=== PATIENT | male | born 1980 | race Caucasian/White ===

== ENCOUNTER 2016-11-26 23:39 | Emergency (ER) | payer MEDICAID ==
[~2016-11-26] VITALS: Ht 182.9 cm; Wt 80.0 kg
[~2016-11-26 23:39] MED LIST: gabapentin
[2016-11-26 23:41] VITALS: BP 120/98
== END 2016-11-27 02:33 | disposition left against medical advice (07) ==
LOC: ED 23:59
DX: Z76.1 Encounter for health supervision and care of foundling (principal); Z53.21 Procedure and treatment not carried out due to patient leaving prior to being seen by health care provider

== ENCOUNTER 2017-02-07 23:04 | Emergency (ER) | payer MEDICAID ==
[~2017-02-07] VITALS: Ht 180.3 cm; Wt 85.0 kg
[2017-02-07] MEDS ORDERED: SODIUM CHLORIDE 0.9% 1,000ML IVBOLUS ONE (23:30)
[2017-02-07 23:38] LABS: BLOOD UREA NITROGEN 9 mg/dL (7-18)
[2017-02-07 23:49] LABS: ASPARTATE AMINO TRANSFERASE 102 U/L (15-37)
[2017-02-07 23:51] LABS: ACETAMINOPHEN < 2 mcg/mL (10-30)
[2017-02-08 04:35] LABS: DAU SCREEN DISCLAIMER
[2017-02-08 04:50] VITALS: BP 154/84
== END 2017-02-08 07:47 | disposition home or self-care (01) ==
LOC: ED 23:59
DX: R45.851 Suicidal ideations (principal); F10.10 Alcohol abuse, uncomplicated; F15.10 Other stimulant abuse, uncomplicated; F20.9 Schizophrenia, unspecified
CPT/HCPCS: 36415; 80053; 80307; 80329; 81003; 84443; 85025; 93005; 96360; 96361; 99285; J7030; G0480

== ENCOUNTER 2020-01-01 16:31 | Emergency (ER) | payer SELFPAY ==
[~2020-01-01] VITALS: Ht 180.3 cm; Wt 82.0 kg
--- NOTE | 2020-01-01 16:56 | NUR ---
PT BIB [facility] FOR C/O EPIGASTRIC PAIN. PT ALSO WITH COUGH X1 WEEK. PT DENIES FEVERS. PT WITH HX ETOH, METH ABUSE. LAST METH USE 2 DAYS AGO, ETOH 1 HOUR AGO. PT DENIES N/V/D. PT DENIES CP, SOB. PT TO CARD MONITOR, BP, CONT PULSE OX
--- NOTE | 2020-01-01 17:27 | NUR ---
PT GIVEN URINAL FOR UA SAMPLE. PT UNABLE TO FOLLOW COMMANDS AT THIS TIME TO INTOXICATION, QUICKLY FALLS BACK TO SLEEP. WILL ATTEMPT AT LATER TIME
[2020-01-01 17:30] LABS: BASOPHILS # (AUTO) 0.01 x10^3/uL (0-0.1); BASOPHILS % (AUTO) 0 % (0-1); EOSINOPHILS # (AUTO) 0.11 x10^3/uL (0-0.4); EOSINOPHILS % (AUTO) 1 % (1-7); LYMPHOCYTES # (AUTO) 0.81 x10^3/uL (1-3.4); LYMPHOCYTES % (AUTO) 9 % (22-44); MD NO; MEAN CORPUSCULAR HEMOGLOBIN 32.8 pg (27.5-34.5); MEAN CORPUSCULAR HGB CONC 33.9 g/dL (33.2-36.2); MEAN CORPUSCULAR VOLUME 96.6 fL (81-97); MEAN PLATELET VOLUME 8.2 fL (7.4-10.4); MONOCYTES # (AUTO) 0.35 x10^3/uL (0.2-0.8); MONOCYTES % (AUTO) 4 % (2-9); NEUTROPHILS # (AUTO) 7.83 x10^3/uL (1.8-6.8); NEUTROPHILS % (AUTO) 86 % (42-75); PLATELET COUNT 232 x10^3/uL (130-400); RED BLOOD COUNT 4.57 x10^6/uL (4.38-5.82)
[2020-01-01 17:42] LABS: ALANINE AMINOTRANSFERASE 136 U/L (12-78); ALBUMIN 3.2 g/dL (3.4-5.0); ANION GAP 9 mmol/L (5-15); CALCIUM 7.6 mg/dL (8.5-10.1); CHLORIDE 109 mmol/L (98-107); CREATININE 0.57 mg/dL (0.7-1.3)
[2020-01-01 17:45] LABS: ALKALINE PHOSPHATASE 62 U/L (45-117); BILIRUBIN,TOTAL 0.6 mg/dL (0.2-1.0); TOTAL PROTEIN 7.2 g/dL (6.4-8.2)
--- NOTE | 2020-01-01 19:00 | NUR ---
RECEIVED REPORT FROM KRISSY CARNEY TO ASSUME CARE OF PT. AT THIS TIME.
--- NOTE | 2020-01-01 19:57 | NUR ---
PT. RESTING ON GURNEY WITH EYES CLOSED. RESPIRATIONS EVEN, NON-LABORED. ALL MONITORS IN PLACE. ALL SAFETY MEASURES OBSERVED. CALLED US IMAGING HAS NOT BEEN COMPLETED YET. TECH STATES IT WILL BE APROXIMATELY 10 MIN BEFORE THEY CAN GET OVER TO COMPLETE IMAGING.
--- NOTE | 2020-01-01 20:25 | NUR ---
US AT BS AT THIS TIME.
--- NOTE | 2020-01-01 20:49 | NUR ---
PT. WALKING AROUND ROOM WITH STEADY GAIT. PT. AT SINK WASHING FACE. UPDATED PAPO LORENZO PT. IS UP FOR RECHECK. PT. TO BE D/C.
[2020-01-01 21:41] VITALS: BP 114/65
== END 2020-01-01 21:44 | disposition home or self-care (01) ==
LOC: ED 16:45
DX: J06.9 Acute upper respiratory infection, unspecified (principal); F10.129 Alcohol abuse with intoxication, unspecified; R74.0 Nonspecific elevation of levels of transaminase and lactic acid dehydrogenase [LDH]; R10.31 Right lower quadrant pain; R10.13 Epigastric pain; R94.31 Abnormal electrocardiogram [ECG] [EKG]; Z92.23 Personal history of estrogen therapy; Y90.0 Blood alcohol level of less than 20 mg/100 ml
CPT/HCPCS: 36415; 74022; 76700; 80053; 83690; 85025; 93005; 99285

== ENCOUNTER 2020-02-05 14:44 | Emergency (ER) | payer SELFPAY ==
[~2020-02-05] VITALS: Ht 175.3 cm; Wt 79.6 kg
--- NOTE | 2020-02-05 15:05 | NUR ---
got back from lunch and patient was recently roomed. patient is rambling, smells of etoh, sunburned and dirty. he states he walked here. he is a poor historian and talks nonstop in a slurred voice. rails up, on monitor, tachy. 95% on room air.
[2020-02-05] MEDS ORDERED: THIAMINE 100MG TABLET ONE (15:28)
[2020-02-05 15:29] LABS: BASOPHILS # (AUTO) 0.06 x10^3/uL (0-0.1); BASOPHILS % (AUTO) 1 % (0-1); EOSINOPHILS # (AUTO) 0.16 x10^3/uL (0-0.4); EOSINOPHILS % (AUTO) 2 % (1-7); LYMPHOCYTES # (AUTO) 3.17 x10^3/uL (1-3.4); LYMPHOCYTES % (AUTO) 42 % (22-44); MD NO; MEAN CORPUSCULAR HEMOGLOBIN 32.9 pg (27.5-34.5); MEAN CORPUSCULAR HGB CONC 33.6 g/dL (33.2-36.2); MEAN CORPUSCULAR VOLUME 97.8 fL (81-97); MEAN PLATELET VOLUME 7.5 fL (7.4-10.4); MONOCYTES # (AUTO) 0.77 x10^3/uL (0.2-0.8); MONOCYTES % (AUTO) 10 % (2-9); NEUTROPHILS # (AUTO) 3.48 x10^3/uL (1.8-6.8); NEUTROPHILS % (AUTO) 46 % (42-75); PLATELET COUNT 345 x10^3/uL (130-400); RED BLOOD COUNT 5.02 x10^6/uL (4.38-5.82); RED CELL DISTRIBUTION WIDTH 13.6 % (9.4-14.8)
[2020-02-05] MEDS ORDERED: LORazepam 2 MG/ML, 1ML ONE (15:29)
[2020-02-05] MEDS ORDERED: SODIUM CHLORIDE 0.9% 1,000ML IVBOLUS ONE (15:30)
[2020-02-05] MEDS ORDERED: LORazepam 2 MG/ML, 1ML IVPush PRN (15:30)
[2020-02-05] MEDS ORDERED: SODIUM CHLORIDE FLUSH 10ML SYR IVF ONE (15:30)
[2020-02-05] MEDS ORDERED: THIAMINE 100MG TABLET PO ONE (15:30)
--- NOTE | 2020-02-05 15:32 | NUR ---
placed on two liters nc. patient falls asleep and oxygen sat drops to 80's. in bed rails up on monitor.
[2020-02-05 15:41] LABS: ALBUMIN 3.8 g/dL (3.4-5.0); ANION GAP 8 mmol/L (5-15); CALCIUM 8.6 mg/dL (8.5-10.1); CHLORIDE 111 mmol/L (98-107); CREATININE 0.75 mg/dL (0.7-1.3)
--- NOTE | 2020-02-05 15:41 | NUR ---
Put pt on 2L O2 on nasal cannula & set urinal at bedside
--- NOTE | 2020-02-05 16:03 | NUR ---
ativan calmed patient and he is sleeping very soundly. awakens to physical touch otherwise asleep. vss
--- NOTE | 2020-02-05 18:02 | NUR ---
patient mostly sleeping but wakes easier. went in room and iv was almost removed, but saved it and retaped it down. patient is sleepy and wakes up sitting up abruptly and sits up and has big dramatic movements, then settles back down to rest.
--- NOTE | 2020-02-05 18:38 | NUR ---
patient resting quietly.
--- NOTE | 2020-02-05 19:06 | NUR ---
bedside report with mamie
--- NOTE | 2020-02-05 19:54 | NUR ---
PT RESTING ON GURNEY, AWAKES TO NAME. PT REQUESTING ORANGE JUICE, JUICE PROVIDED. WILL CONT TO MONITOR.
--- NOTE | 2020-02-05 21:25 | NUR ---
TECH ATTEMPTED TO AMBULATED PT, PT NOT STEADY ON FEET, NOT SAFE FOR DISCHARGE AT THIS TIME.
--- NOTE | 2020-02-05 21:52 | NUR ---
WATER AND CRACKERS PROVIDED REQUESTED
--- NOTE | 2020-02-05 22:51 | NUR ---
PT LAYING ON LEFT SIDE, NO ACUTE DISTRESS NOTED AT THIS TIME. VSS AND WILL CONT TO MONITOR.
[2020-02-05 23:58] VITALS: BP 125/77
--- NOTE | 2020-02-06 00:27 | NUR ---
PT AMBULATING IN HALLWAY WITH STEADY GAIT, PT SAFE FOR DISCHARGE AT THIS TIME. PT PROVIDED WITH RESOURCES FOR ETOH DETOX. PT THREW PAPERS INTO TRASH. RN INFORMED PT THAT [facility] WOULD TAKE HIM FOR DETOX IN THE AM AND TAXI VOUCHER PROVIDED FOR RIDE TO THE CUSTODIAL. PT REFUSED TAXI AND WALKED OUT OF ED.
== END 2020-02-06 00:30 | disposition home or self-care (01) ==
LOC: ED 18:35
DX: F10.129 Alcohol abuse with intoxication, unspecified (principal); F15.10 Other stimulant abuse, uncomplicated; F17.200 Nicotine dependence, unspecified, uncomplicated; R00.0 Tachycardia, unspecified; Y90.0 Blood alcohol level of less than 20 mg/100 ml
CPT/HCPCS: 36415; 80048; 80307; 82040; 85025; 93005; 96374; 99285; J2060; J7030

== ENCOUNTER 2020-03-23 14:53 | Emergency (ER) | payer SELFPAY ==
[~2020-03-23] VITALS: Ht 172.7 cm; Wt 97.1 kg
--- NOTE | 2020-03-23 15:17 | NUR ---
THIS IS A 40 YO M W/ MULTIPLE COMPLAINTS. PT STATES HE "JUST WANTS TO FIX UP MY LIFE". PT REPORTS LAST DRINK WAS 2 MINUTES PRIOR TO ARRIVAL. PT TACYCARDIC, OTHER VS WDL. PT RESTING ON InVisM W/ CALL LIGHT IN REACH, CONNECTED TO MONITORING. DIET TRAY ORDERED.
[2020-03-23] MEDS ORDERED: LORazepam 1MG TABLET ONE (15:26)
[2020-03-23] MEDS ORDERED: LORazepam 1MG TABLET PO ONE (15:30)
--- NOTE | 2020-03-23 15:31 | NUR ---
PT MEDICATED PER EMAR.
--- NOTE | 2020-03-23 15:48 | NUR ---
PT DESAT TO 72% RA WHEN SLEEPING. UPDATED. PT PLACED ON 4L NC FOR SAFETY W/ DESIRED EFFECT.
[2020-03-23] MEDS ORDERED: MAGNESIUM SULFATE 1 GM, THIAMINE 100 MG, FOLIC ACID 1 MG, MVI ADULT 10 ML in SODIUM CHL... IV ONE (16:30)
[2020-03-23] MEDS ORDERED: SODIUM CHLORIDE FLUSH 10ML SYR IVF ONE (16:30)
--- NOTE | 2020-03-23 16:46 | NUR ---
PT MORE DIAPHORETIC AND LETHARGIC. TACHYCARDIC, OTHER VS WDL. PIV STARTED, LABS DRAWN.
--- NOTE | 2020-03-23 16:50 | NUR ---
MED JUAN ANTONIO FROM PHARMACY.
[2020-03-23 16:59] LABS: BASOPHILS # (AUTO) 0.05 x10^3/uL (0-0.1); BASOPHILS % (AUTO) 1 % (0-1); EOSINOPHILS # (AUTO) 0.13 x10^3/uL (0-0.4); EOSINOPHILS % (AUTO) 2 % (1-7); LYMPHOCYTES % (AUTO) 31 % (22-44); MD NO; MEAN CORPUSCULAR HGB CONC 32.9 g/dL (33.2-36.2); MEAN CORPUSCULAR VOLUME 100.4 fL (81-97); MEAN PLATELET VOLUME 7.3 fL (7.4-10.4); MONOCYTES # (AUTO) 0.81 x10^3/uL (0.2-0.8); MONOCYTES % (AUTO) 12 % (2-9); NEUTROPHILS # (AUTO) 3.56 x10^3/uL (1.8-6.8); NEUTROPHILS % (AUTO) 54 % (42-75); PLATELET COUNT 268 x10^3/uL (130-400); RED BLOOD COUNT 4.36 x10^6/uL (4.38-5.82); RED CELL DISTRIBUTION WIDTH 13.5 % (9.4-14.8)
[2020-03-23 17:06] LABS: ALBUMIN 3.4 g/dL (3.4-5.0); ANION GAP 9 mmol/L (5-15); CALCIUM 8.4 mg/dL (8.5-10.1); CHLORIDE 109 mmol/L (98-107)
[2020-03-23 17:09] LABS: ALANINE AMINOTRANSFERASE 144 U/L (12-78); ALKALINE PHOSPHATASE 82 U/L (45-117); BILIRUBIN,TOTAL 0.3 mg/dL (0.2-1.0); CREATININE 0.67 mg/dL (0.7-1.3); TOTAL PROTEIN 7.6 g/dL (6.4-8.2)
[2020-03-23] MEDS ORDERED: POTASSIUM CHLORIDE 40 MEQ in SODIUM CHLORIDE 0.9% 500 ML IV ONE (17:30)
--- NOTE | 2020-03-23 17:39 | NUR ---
MED JUAN ANTONIO FROM PHARMACY.
--- NOTE | 2020-03-23 17:39 | NUR ---
CRITICAL MIMI 0.410, REPORTED TO .
--- NOTE | 2020-03-23 17:57 | NUR ---
suicide Safety Meal tray provided to patient.
--- NOTE | 2020-03-23 18:44 | NUR ---
PT SLEEPING ON GURNEY, CONNECTED TO ALL MONITORING, VSS, DOLORESN.
--- NOTE | 2020-03-23 19:01 | NUR ---
REPORT GIVEN TO CATRACHITA REY. PT SLEEPING ON [facility], [facility]. IVF INFUSING APPROPRIATELY.
--- NOTE | 2020-03-23 19:03 | NUR ---
REPORT RECEIVED FROM KRISSY WRIGHT. ASSUMED CARE OF PT. PT SLEEPING ON GURNEY, NO DISTRESS NOTED. RESPIRATIONS EVEN AND UNLABORED. ALL VITALS STABLE. IV MEDS INFUSING WITHOUT DIFFICULTY. FOOD AT BEDSIDE FOR WHEN PT WAKES UP. WILL CONTINUE TO MONITOR.
--- NOTE | 2020-03-23 19:53 | NUR ---
PT CONTINUES TO SLEEP. VITALS REMAIN STABLE. RESPIRATIONS EVEN AND UNLABORED, WILL CONTINUE TO MONITOR.
--- NOTE | 2020-03-23 21:28 | NUR ---
PT INTERMITTENTLY SLEEPING, AROUSES TO VERBAL STIMULI HOWEVER IS NOT FULL COHERENT. ALL VITALS REMAIN STABLE. AWAITING MEDS TO INFUSE AND PT TO BE SOBER ENOUGH FOR SAFE DISCHARGE. WILL CONTINUE TO MONITOR.
--- NOTE | 2020-03-23 22:08 | NUR ---
PT AWAKE, EATING A SANDWICH, PROVIDED WITH ORANGE JUICE. ALL VITALS STABLE. PT ALERT AND ORIENTED AND ANSWERING QUESTIONS APPROPRIATELY. WILL RE EVALUATE PT SHORTLY.
--- NOTE | 2020-03-23 23:37 | NUR ---
PT ALERT AND ORIENTED, AMBULATORY WITH STEADY GAIT. ALL VITALS STABLE. PT PROVIDED WITH DISCHARGE PAPERWORK, OFFERED SOCKS BUT REFUSED, PT DOES HAVE SANDALS. WATER PROVIDED. CAB VOUCHER ALSO PROVIDED.
[2020-03-23 23:39] VITALS: BP 116/67
== END 2020-03-23 23:42 | disposition home or self-care (01) ==
LOC: ED 16:00
DX: F10.220 Alcohol dependence with intoxication, uncomplicated (principal); Y90.9 Presence of alcohol in blood, level not specified
CPT/HCPCS: 36415; 80053; 80307; 83735; 85025; 96365; 96367; 99285; J3411; J3475; J3480; J7030; J7040

== ENCOUNTER 2020-03-26 00:42 | Emergency (ER) | payer SELFPAY ==
[~2020-03-26] VITALS: Ht 180.3 cm; Wt 86.5 kg
[2020-03-26] MEDS ORDERED: LORazepam 1MG TABLET PO ONE (01:30)
[2020-03-26] MEDS ORDERED: LORazepam 1MG TABLET ONE (01:40)
[2020-03-26 01:47] VITALS: BP 136/71
== END 2020-03-26 01:49 | disposition home or self-care (01) ==
LOC: ED 01:15
DX: F41.1 Generalized anxiety disorder (principal); F15.122 Other stimulant abuse with intoxication with perceptual disturbance; R00.0 Tachycardia, unspecified
CPT/HCPCS: 93005; 99283

== ENCOUNTER 2020-04-24 20:41 | Emergency (ER) | payer MEDICAID ==
[~2020-04-24] VITALS: Ht 175.3 cm; Wt 97.0 kg
[2020-04-24 20:42] VITALS: BP 122/79
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
== END 2020-04-24 21:21 | disposition left against medical advice (07) ==
LOC: ED 21:00
DX: R41.82 Altered mental status, unspecified (principal); I95.9 Hypotension, unspecified; Z72.9 Problem related to lifestyle, unspecified
CPT/HCPCS: 99283

== ENCOUNTER 2020-05-05 05:45 | Emergency (ER) | payer MEDICAID ==
[~2020-05-05] VITALS: Ht 177.8 cm; Wt 80.0 kg
[2020-05-05 05:57] VITALS: BP 127/71
--- NOTE | 2020-05-05 07:21 | NUR ---
PT GIVEN DISCHARGE PAPERS AND AMBULATED TO BATHROOM THEN DISCHARGE WINDOW STEADY GAIT
== END 2020-05-05 07:24 | disposition home or self-care (01) ==
LOC: ED 06:33
DX: K40.91 Unilateral inguinal hernia, without obstruction or gangrene, recurrent (principal); F15.10 Other stimulant abuse, uncomplicated
CPT/HCPCS: 99283

== ENCOUNTER 2020-05-15 18:06 | Emergency (ER) | payer MEDICAID ==
[~2020-05-15] VITALS: Ht 180.3 cm; Wt 90.0 kg
--- NOTE | 2020-05-15 18:27 | NUR ---
PT PLACED ON BP CUFF, PULSE OX. CALL LIGHT WITHIN REACH.
--- NOTE | 2020-05-15 20:19 | NUR ---
PT SLEEPING, NAD. VSS. CALL LIGHT WITHIN REACH.
--- NOTE | 2020-05-15 21:12 | NUR ---
REPORT TO PATRICIA REY.
--- NOTE | 2020-05-15 21:18 | NUR ---
Report received from KRISSY Klein Pt sleeping on [employer]. VSS.
[2020-05-15 21:25] LABS: BASOPHILS # (AUTO) 0.06 x10^3/uL (0-0.1); BASOPHILS % (AUTO) 1 % (0-1); EOSINOPHILS # (AUTO) 0.12 x10^3/uL (0-0.4); EOSINOPHILS % (AUTO) 2 % (1-7); LYMPHOCYTES # (AUTO) 1.92 x10^3/uL (1-3.4); LYMPHOCYTES % (AUTO) 28 % (22-44); MD NO; MEAN CORPUSCULAR HEMOGLOBIN 33.1 pg (27.5-34.5); MEAN CORPUSCULAR HGB CONC 33.5 g/dL (33.2-36.2); MEAN CORPUSCULAR VOLUME 98.8 fL (81-97); MEAN PLATELET VOLUME 8.3 fL (7.4-10.4); MONOCYTES # (AUTO) 0.69 x10^3/uL (0.2-0.8); MONOCYTES % (AUTO) 10 % (2-9); NEUTROPHILS # (AUTO) 4.01 x10^3/uL (1.8-6.8); NEUTROPHILS % (AUTO) 59 % (42-75); PLATELET COUNT 220 x10^3/uL (130-400); RED BLOOD COUNT 4.41 x10^6/uL (4.38-5.82); RED CELL DISTRIBUTION WIDTH 13.2 % (9.4-14.8)
[2020-05-15 21:37] LABS: ALANINE AMINOTRANSFERASE 88 U/L (12-78); ALBUMIN 3.2 g/dL (3.4-5.0); ANION GAP 9 mmol/L (5-15); CHLORIDE 106 mmol/L (98-107)
[2020-05-15 21:40] LABS: ALKALINE PHOSPHATASE 91 U/L (45-117); BILIRUBIN,TOTAL 0.4 mg/dL (0.2-1.0); CREATININE 0.58 mg/dL (0.7-1.3); TOTAL PROTEIN 8.2 g/dL (6.4-8.2)
--- NOTE | 2020-05-15 22:32 | NUR ---
Pt sleeping on gurney. Pt seen repositioning self. VSS.
[2020-05-15 22:33] VITALS: BP 118/77
[2020-05-16] MEDS ORDERED: POTASSIUM CHLORIDE 10% 40 MEQ/30 ML UDC PO ONE (00:30)
--- NOTE | 2020-05-16 00:58 | NUR ---
VSS. Pt off oxygen. Pt sitting up on gurney.
--- NOTE | 2020-05-16 01:08 | NUR ---
Pt given apple juice. Pt sitting up. Pt remains on pulse ox/HR monitor. Pt aware of plan to ambulate again.
--- NOTE | 2020-05-16 01:29 | NUR ---
Pt tolerated 2 apple juices and PO potassium replacement.
--- NOTE | 2020-05-16 01:49 | NUR ---
Pt ambulatory in room. Pt continues to tolerate PO fluids. Pt talking to nurse and says he won't quit drinking because it "gives him withdrawals". updated and okay with d/c.
== END 2020-05-16 02:10 | disposition home or self-care (01) ==
LOC: ED 21:05
DX: K40.91 Unilateral inguinal hernia, without obstruction or gangrene, recurrent (principal); E87.6 Hypokalemia; R10.2 Pelvic and perineal pain; F10.20 Alcohol dependence, uncomplicated; F15.20 Other stimulant dependence, uncomplicated; F17.210 Nicotine dependence, cigarettes, uncomplicated; Z72.9 Problem related to lifestyle, unspecified; Y90.0 Blood alcohol level of less than 20 mg/100 ml
CPT/HCPCS: 36415; 80053; 80307; 83690; 85025; 99285; 99406

== ENCOUNTER 2020-05-17 15:47 | Emergency (ER) | payer MEDICAID ==
[~2020-05-17] VITALS: Ht 180.3 cm; Wt 90.9 kg
[2020-05-17] MEDS ORDERED: SODIUM CHLORIDE 0.9% 1,000ML IVBOLUS ONE (16:30)
[2020-05-17] MEDS ORDERED: SODIUM CHLORIDE FLUSH 10ML SYR IVF ONE (16:30)
[2020-05-17] MEDS ORDERED: ONDANSETRON ODT 4 MG PO ONE (16:30)
[2020-05-17] MEDS ORDERED: FAMOTIDINE 20 MG/2 ML IVPush ONE (16:30)
[2020-05-17] MEDS ORDERED: MAALOX/HYOSCYAMINE/LIDOCAINE 45 ML BTL PO ONE (16:30)
[2020-05-17] MEDS ORDERED: FAMOTIDINE 20 MG/2 ML ONE (16:41)
[2020-05-17] MEDS ORDERED: ONDANSETRON ODT 4 MG ONE (16:41)
[2020-05-17] MEDS ORDERED: MAALOX/HYOSCYAMINE/LIDOCAINE 45 ML BTL ONE (16:41)
[2020-05-17 16:52] LABS: BASOPHILS # (AUTO) 0.04 x10^3/uL (0-0.1); BASOPHILS % (AUTO) 1 % (0-1); EOSINOPHILS # (AUTO) 0.12 x10^3/uL (0-0.4); EOSINOPHILS % (AUTO) 2 % (1-7); LYMPHOCYTES # (AUTO) 2.29 x10^3/uL (1-3.4); LYMPHOCYTES % (AUTO) 33 % (22-44); MD NO; MEAN CORPUSCULAR HEMOGLOBIN 33.2 pg (27.5-34.5); MEAN CORPUSCULAR HGB CONC 33.6 g/dL (33.2-36.2); MEAN CORPUSCULAR VOLUME 98.8 fL (81-97); MEAN PLATELET VOLUME 7.7 fL (7.4-10.4); MONOCYTES # (AUTO) 0.61 x10^3/uL (0.2-0.8); MONOCYTES % (AUTO) 9 % (2-9); NEUTROPHILS # (AUTO) 3.79 x10^3/uL (1.8-6.8); NEUTROPHILS % (AUTO) 55 % (42-75); PLATELET COUNT 272 x10^3/uL (130-400); RED BLOOD COUNT 4.42 x10^6/uL (4.38-5.82); RED CELL DISTRIBUTION WIDTH 12.6 % (9.4-14.8)
[2020-05-17 16:57] VITALS: BP 116/71
[2020-05-17 17:00] LABS: ALANINE AMINOTRANSFERASE 79 U/L (12-78); ALBUMIN 3.2 g/dL (3.4-5.0); ANION GAP 7 mmol/L (5-15); CALCIUM 8.1 mg/dL (8.5-10.1); CHLORIDE 108 mmol/L (98-107); CREATININE 0.57 mg/dL (0.7-1.3)
[2020-05-17 17:05] LABS: ALKALINE PHOSPHATASE 97 U/L (45-117); BILIRUBIN,TOTAL 0.4 mg/dL (0.2-1.0); TOTAL PROTEIN 8.2 g/dL (6.4-8.2); TROPONIN I < 0.015 ng/mL (0.000-0.045)
--- NOTE | 2020-05-17 18:50 | NUR ---
BEDSIDE REPORT FROM EZE REY, PT CARE TO BE TRANSFERRED AT THIS TIME. PT NAD, RESTING ON GURNEY, APPEARS COMFORTBALE, GIVEN MEAL TRAY AND WARM BLANKETS FOR COMFORT. WCHETCOR. MTF.
--- NOTE | 2020-05-17 19:42 | NUR ---
Patient given discharge instructions and they have confirmed that they understand the instructions. Patient ambulatory with steady gait. NAD, DENIES ADDITIONAL NEEDS OR QUESTIONS AT THIS TIME. SKIN P/W/D, VSS. NO BELONGINGS LEFT IN ROOM ON DC.
== END 2020-05-17 19:43 | disposition home or self-care (01) ==
LOC: ED 16:22
DX: R07.89 Other chest pain (principal); F10.220 Alcohol dependence with intoxication, uncomplicated; F17.210 Nicotine dependence, cigarettes, uncomplicated; R56.9 Unspecified convulsions; Y90.0 Blood alcohol level of less than 20 mg/100 ml
CPT/HCPCS: 36415; 70450; 71045; 80053; 80307; 84484; 85025; 93005; 96374; 99285; 99406; J3490; J7030; Q0162

== ENCOUNTER 2020-05-21 20:04 | Emergency (ER) | payer MEDICAID ==
[~2020-05-21] VITALS: Ht 175.3 cm; Wt 82.0 kg
--- NOTE | 2020-05-21 20:21 | NUR ---
Arrives via [facility]. Intoxicated, but alert, answering questions appropriately. States R groin pain worsening x "a couple weeks." Pt states he believes it is a hernia. R groin tender to palpation. Pt also states RLQ tenderness/pain. Denies N/V/D. Denies fever/chills. Denies chest pain/SOB. Pt admits to being daily drinker of "as much as I can get" with hx of withdrawal seizures.
[2020-05-21 21:07] VITALS: BP 129/78
== END 2020-05-21 21:10 | disposition home or self-care (01) ==
LOC: ED 20:30
DX: K40.91 Unilateral inguinal hernia, without obstruction or gangrene, recurrent (principal)
CPT/HCPCS: 99283

== ENCOUNTER 2020-06-19 01:07 | Emergency (ER) | payer MEDICAID ==
[~2020-06-19] VITALS: Ht 180.3 cm; Wt 85.0 kg
[2020-06-19 01:09] VITALS: BP 126/77
--- NOTE | 2020-06-19 03:03 | NUR ---
SLEEPING, RR EQUAL AND UNLABORED, BED LOW, CALL VINCENT IN REACH. WILL CONTINUE TO MONITOR. MTF.
== END 2020-06-19 04:10 | disposition home or self-care (01) ==
LOC: ED 03:30
DX: F10.220 Alcohol dependence with intoxication, uncomplicated (principal); R05 Cough; R06.02 Shortness of breath; Y90.9 Presence of alcohol in blood, level not specified
CPT/HCPCS: 71045; 99283

== ENCOUNTER 2020-06-22 06:21 | Emergency (ER) | payer MEDICAID ==
[~2020-06-22] VITALS: Ht 180.3 cm; Wt 84.0 kg
[2020-06-22 06:24] VITALS: BP 119/95
--- NOTE | 2020-06-22 06:29 | NUR ---
triage note: EKG done in triage
--- NOTE | 2020-06-22 06:51 | NUR ---
Pt currently in xray
[2020-06-22 07:44] LABS: BASOPHILS % (AUTO) 1 % (0-1); EOSINOPHILS % (AUTO) 1 % (1-7); LYMPHOCYTES % (AUTO) 35 % (22-44); MEAN CORPUSCULAR HEMOGLOBIN 33.3 pg (27.5-34.5); MEAN CORPUSCULAR HGB CONC 33.8 g/dL (33.2-36.2); MEAN PLATELET VOLUME 8.5 fL (7.4-10.4); MONOCYTES % (AUTO) 8 % (2-9); NEUTROPHILS % (AUTO) 55 % (42-75); PLATELET COUNT 187 x10^3/uL (130-400); RED BLOOD COUNT 4.41 x10^6/uL (4.38-5.82); RED CELL DISTRIBUTION WIDTH 13.4 % (9.4-14.8)
[2020-06-22 07:47] LABS: ALANINE AMINOTRANSFERASE 117 U/L (12-78); ALBUMIN 3.4 g/dL (3.4-5.0); ANION GAP 8 mmol/L (5-15); CALCIUM 8.3 mg/dL (8.5-10.1); CHLORIDE 105 mmol/L (98-107)
--- NOTE | 2020-06-22 07:50 | NUR ---
Pt ambulatory to main nurse's station with steady gait, reports he does not want to stay and be seen any longer. Pt appears agitated, shouting "I'm getting the fuck outta here." to his friend who is accompanying pt. Pt's friend states "He wants to leave, I can't convince him to stay, I'm sorry." Pt A&O x4, fully dressed. Pt refuses to sign AMA paper. Pt walked out of unit accompanied by his friend. made aware.
[2020-06-22 07:51] LABS: MD NO
[2020-06-22 07:52] LABS: ALKALINE PHOSPHATASE 83 U/L (45-117); BILIRUBIN,TOTAL 0.4 mg/dL (0.2-1.0); TROPONIN I < 0.015 ng/mL (0.000-0.045)
== END 2020-06-22 07:54 | disposition left against medical advice (07) ==
LOC: ED 07:30
DX: R10.84 Generalized abdominal pain (principal); R06.00 Dyspnea, unspecified; R00.0 Tachycardia, unspecified; F17.200 Nicotine dependence, unspecified, uncomplicated
CPT/HCPCS: 36415; 74022; 80053; 80307; 83690; 84484; 85025; 93005; 99285

== ENCOUNTER 2020-07-09 02:08 | Emergency (ER) | payer MEDICAID ==
[~2020-07-09] VITALS: Ht 180.3 cm; Wt 89.2 kg
--- NOTE | 2020-07-09 02:27 | NUR ---
FIRST CONTACT WITH PT, PT FOUND WALKING DOWN HALLWAY. REDIRECTED TO ROOM, PULSE OX 99%RA.
[2020-07-09] MEDS ORDERED: SODIUM CHLORIDE FLUSH 10ML SYR IVF ONE ×2 (02:30→03:00)
--- NOTE | 2020-07-09 02:53 | NUR ---
PT WITH RED, GLASSY EYES, SLURRED SPEACH, FALLS ASLEEP THEN WAKES UP SHOUTING OF RLQ PAIN HX HERNIA. IV STARTED, BLOODS DRAWN AND SENT. ON SEAM PRESS OPERATOR, S TACH NO ECTOPY NO ST ELEVATION. PCXR DONE. IVF INFUSING PER ORDER. CALL VINCENT IN REACH, BED LOW. WILL CONTINUE TO MONITOR.
--- NOTE | 2020-07-09 02:59 | NUR ---
PT WITH PERIODS OF APNEA, O2 SAT 80%RA, VERBAL/PAINFUL STIMULI PT WAKES UP, AIRWAY OPEN, O2 PLACED. SATS BACK UP 98%.
[2020-07-09] MEDS ORDERED: SODIUM CHLORIDE 0.9% 1,000ML IVBOLUS ONE (03:00)
[2020-07-09 03:06] LABS: ALANINE AMINOTRANSFERASE 170 U/L (12-78); ALBUMIN 3.2 g/dL (3.4-5.0); ANION GAP 5 mmol/L (5-15); CALCIUM 8.4 mg/dL (8.5-10.1); CHLORIDE 110 mmol/L (98-107); CREATININE 0.69 mg/dL (0.7-1.3)
[2020-07-09 03:08] LABS: ALKALINE PHOSPHATASE 94 U/L (45-117); BILIRUBIN,TOTAL 0.4 mg/dL (0.2-1.0); TOTAL PROTEIN 7.7 g/dL (6.4-8.2)
[2020-07-09 03:11] LABS: BASOPHILS % (AUTO) 2 % (0-1); EOSINOPHILS % (AUTO) 1 % (1-7); LYMPHOCYTES % (AUTO) 26 % (22-44); MEAN CORPUSCULAR HEMOGLOBIN 33.1 pg (27.5-34.5); MEAN CORPUSCULAR HGB CONC 33.3 g/dL (33.2-36.2); MEAN PLATELET VOLUME 8.5 fL (7.4-10.4); MONOCYTES % (AUTO) 15 % (2-9); NEUTROPHILS % (AUTO) 57 % (42-75); PLATELET COUNT 369 x10^3/uL (130-400); RED BLOOD COUNT 4.19 x10^6/uL (4.38-5.82); RED CELL DISTRIBUTION WIDTH 12.5 % (9.4-14.8)
[2020-07-09 03:57] LABS: MD SCAN
[2020-07-09] MEDS ORDERED: OMNIPAQUE 350 MG/ML, 100ML BOTTLE ONE (03:58)
--- NOTE | 2020-07-09 04:06 | NUR ---
BACK FROM CT, PT ONLY WAKES UP WITH LOUD VERBAL/PAINFUL STIMULI. IVF INFUSED. ON MONITOR. VSS. WILL CONTINUE TO MONITOR.
--- NOTE | 2020-07-09 04:46 | NUR ---
SLEEPING, WAKES UP WITH LOUD VERBAL, PAINFUL STIMULI. VSS. WILL CONTINUE TO MONITOR.
--- NOTE | 2020-07-09 05:03 | NUR ---
PT REMAINS DIFFICULT TO WAKE UP, WHEN DOES WAKE UP IS SLURRY SPEACH. ERP INFORMED. WILL NEED TO MTF PRIOR TO DC, UNABLE TO SAFELY DISPO AT THIS TIME.
[2020-07-09 05:08] LABS: MICROSCOPIC NOT IND
--- NOTE | 2020-07-09 05:55 | NUR ---
PT INADVERTENTLY PULLED HIS OWN IV OUT, CATH INTACT. BLEEDING CONTROLLED. PT STILL WITH DIFFICULTY WAKING UP WITHOUT PAINFUL STIMULI. SIDE RAILS UP, RR EQUAL AND UNLABORED.
--- NOTE | 2020-07-09 06:47 | NUR ---
REPORT TO KRISSY WRIGHT
[2020-07-09 07:20] VITALS: BP 120/90
--- NOTE | 2020-07-09 07:27 | NUR ---
PT VERBALIZED UNDERSTANDING OF DC INSTRUCTIONS. AMBULATORY W/ A STEADY GAIT. RESP EVEN AND UNLABORED, NADN.
== END 2020-07-09 07:29 | disposition home or self-care (01) ==
LOC: ED 04:22
DX: K44.9 Diaphragmatic hernia without obstruction or gangrene (principal); K21.9 Gastro-esophageal reflux disease without esophagitis; R94.5 Abnormal results of liver function studies; R10.13 Epigastric pain; R05 Cough; R10.9 Unspecified abdominal pain; F10.10 Alcohol abuse, uncomplicated; F15.10 Other stimulant abuse, uncomplicated; Y90.9 Presence of alcohol in blood, level not specified; Z72.9 Problem related to lifestyle, unspecified
CPT/HCPCS: 36415; 71045; 74177; 80053; 81003; 83690; 85025; 93005; 96360; 96361; 99285; J7030; Q9967

== ENCOUNTER 2020-07-21 22:15 | Emergency (ER) | payer MEDICAID ==
[~2020-07-21] VITALS: Ht 182.9 cm; Wt 89.3 kg
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
--- NOTE | 2020-07-21 22:24 | NUR ---
PT STATES HE DRINKS "ALL DAY EVERY DAY". SEIZURE PRECAUTIONS IN PLACE.
--- NOTE | 2020-07-21 22:25 | NUR ---
BYSTANDER AT SCENE LEFT DAUGHTERS PHONE NUMBERS WITH EMS. JOSHUA - [phone] AND KOTA [phone]
[2020-07-21] MEDS ORDERED: ONDANSETRON ODT 4 MG PO ONE (22:30)
[2020-07-21] MEDS ORDERED: THIAMINE 100MG TABLET PO ONE (22:30)
[2020-07-21 22:45] LABS: BASOPHILS % (AUTO) 1 % (0-1); EOSINOPHILS % (AUTO) 2 % (1-7); LYMPHOCYTES % (AUTO) 28 % (22-44); MEAN CORPUSCULAR HEMOGLOBIN 33.2 pg (27.5-34.5); MEAN CORPUSCULAR HGB CONC 33.5 g/dL (33.2-36.2); MEAN PLATELET VOLUME 7.8 fL (7.4-10.4); MONOCYTES % (AUTO) 8 % (2-9); NEUTROPHILS % (AUTO) 60 % (42-75); PLATELET COUNT 256 x10^3/uL (130-400); RED BLOOD COUNT 4.59 x10^6/uL (4.38-5.82); RED CELL DISTRIBUTION WIDTH 12.8 % (9.4-14.8)
[2020-07-21 22:46] LABS: MD NO
[2020-07-21 22:57] LABS: ALBUMIN 3.2 g/dL (3.4-5.0); ANION GAP 5 mmol/L (5-15); CALCIUM 8.1 mg/dL (8.5-10.1); CHLORIDE 109 mmol/L (98-107); CREATININE 0.56 mg/dL (0.7-1.3)
[2020-07-21 22:58] LABS: SALICYLATE LEVEL < 1.7 mg/dL (2.8-20.0)
[2020-07-21] MEDS ORDERED: THIAMINE 100MG TABLET ONE (23:12)
--- NOTE | 2020-07-21 23:30 | NUR ---
PT INDIVIDUALIZED EDUCATION PLAN AIDE LIGHT CONSTATNTLY AND YELLING FROM ROOM FOR "WARM FOOD". PT STATES HE HASNT EATEN IN THREE DAYS. EDUCATED ON THAT COFFEE CART IS CLOSED AT THIS TIME. WILL DO NURSE DYSPHAGIA AND SEE ABOUT CRACKERS IN MEANTIME
--- NOTE | 2020-07-22 00:30 | NUR ---
PT SLEEPING, VSS. NO NEEDS AT THIS TIME
--- NOTE | 2020-07-22 01:30 | NUR ---
PT SLEEPING, VSS, NO NEEDS AT THIS TIME
--- NOTE | 2020-07-22 02:30 | NUR ---
PT SLEEPING, VSS, NO NEEDS
--- NOTE | 2020-07-22 03:26 | NUR ---
PT AWAKENS EASILY, NO SEIZURE ACTIVITY NOTED.
[2020-07-22 03:36] VITALS: BP 118/75
== END 2020-07-22 03:40 | disposition home or self-care (01) ==
LOC: ED 22:37
DX: S06.0X0A Concussion without loss of consciousness, initial encounter (principal); S00.83XA Contusion of other part of head, initial encounter; G31.2 Degeneration of nervous system due to alcohol; F17.210 Nicotine dependence, cigarettes, uncomplicated; F10.220 Alcohol dependence with intoxication, uncomplicated; Y90.0 Blood alcohol level of less than 20 mg/100 ml; R00.0 Tachycardia, unspecified; W22.8XXA Striking against or struck by other objects, initial encounter; Y93.89 Activity, other specified; Y92.89 Other specified places as the place of occurrence of the external cause; Y99.8 Other external cause status
CPT/HCPCS: 36415; 70450; 71045; 80048; 80307; 82040; 85025; 93005; 99285; 99406

== ENCOUNTER 2020-07-22 15:36 | Emergency (ER) | payer MEDICAID ==
[~2020-07-22] VITALS: Ht 175.3 cm; Wt 75.0 kg
[2020-07-22 16:37] VITALS: BP 119/84
== END 2020-07-22 19:26 | disposition home or self-care (01) ==
LOC: ED 18:58
DX: S00.03XA Contusion of scalp, initial encounter (principal); F10.20 Alcohol dependence, uncomplicated; G92 Toxic encephalopathy; G40.909 Epilepsy, unspecified, not intractable, without status epilepticus; Z72.9 Problem related to lifestyle, unspecified; X58.XXXA Exposure to other specified factors, initial encounter; Y93.89 Activity, other specified; Y92.89 Other specified places as the place of occurrence of the external cause; Y99.8 Other external cause status; Y90.0 Blood alcohol level of less than 20 mg/100 ml
CPT/HCPCS: 36415; 70450; 80307; 82962; 93005; 99285

== ENCOUNTER 2020-08-16 01:25 | Emergency (ER) | payer MEDICAID ==
[~2020-08-16] VITALS: Ht 180.3 cm; Wt 83.3 kg
[2020-08-16 01:33] VITALS: BP 121/74
[2020-08-16] MEDS ORDERED: CLINDAMYCIN 300 MG CAPSULE PO ONE (02:00)
[2020-08-16] MEDS ORDERED: CLINDAMYCIN 300 MG CAPSULE ONE (02:32)
--- NOTE | 2020-08-16 02:35 | NUR ---
PT MEDICATED WITH ABX. PT GIVEN URINAL. PT TO BE DC'D
--- NOTE | 2020-08-16 03:23 | NUR ---
Covering KRISSY Pichardo for break. Pt sleeping, waiting for dispo/re-eval by ERP.
--- NOTE | 2020-08-16 03:54 | NUR ---
First contact with patient, dc with rx and instruct. Pt refusing to go told me to "fuck off im sleeping" security called to escort out. VSS. able to safely navigate community and resources.
--- NOTE | 2020-08-16 03:57 | NUR ---
Upon leaving pt told me to "fuck off I don't want that" re: his dc papers
== END 2020-08-16 04:00 | disposition home or self-care (01) ==
LOC: ED 03:52
DX: L03.114 Cellulitis of left upper limb (principal); F17.200 Nicotine dependence, unspecified, uncomplicated; Z72.9 Problem related to lifestyle, unspecified
CPT/HCPCS: 99283

== ENCOUNTER 2020-08-28 11:55 | Emergency (ER) | payer SELFPAY ==
[~2020-08-28] VITALS: Ht 180.3 cm; Wt 78.3 kg
--- NOTE | 2020-08-28 12:04 | NUR ---
PATIENT BIB [facility] WITH CHIEF C/O ETOH. PER EMS PATIENT WAS FOUND FACE DOWN. PER EMS PATIENT WAS ONLY RESONSIVE TO PAINFUL STIMULI AT FIRST, BUT BECAME MORE AROUSABLE. NO INTERVENTIONS EN ROUTE. PATIENT RESTLESS IN GURNEY, KEEPS SAYING "MOTHER FUCKERS KNOCK ME DOWN." AND "I'M HUNGRY A MOTHER FUCKER." PATIENT REPORTS DRINKING TWO FIFTHS OF VODKA PER DAY ALONG WITH 4 LOCOS, PATIENT ENDORSES METH USE. NADN, CONNECTED TO FAMILY EDUCATOR, HR 103, OTHER VSS, SIDE RAILS UP X2, CALL LIGHT WITHIN REACH.
--- NOTE | 2020-08-28 13:30 | NUR ---
PATIENT RESTING IN GURNEY WITH EYES CLOSED, RESP EVEN AND UNLABORED, NADN, VSS, SIDE RAILS UP X2, CALL LIGHT WITHIN REACH, WILL CONTINUE TO MONITOR.
[2020-08-28 14:28] VITALS: BP 124/88
--- NOTE | 2020-08-28 14:29 | NUR ---
PATIENT RESTING IN GURNEY WITH EYES CLOSED, RESP EVEN AND UNLABORED, NADN, VSS, SIDE RAILS UP X2, CALL LIGHT WITHIN REACH, WILL CONTINUE TO MONITOR.
--- NOTE | 2020-08-28 14:43 | NUR ---
Patient sitting in [facility] stating "get me the fuck out of here, I'll sign what I need to sign." Patient stood up from [facility] and ripped off blood pressure cuff, O2 sensor, and phototypesetting equipment monitor leads. Spoke with [employer], discharge paperwork up. Gave discharge paperwork to patient, walked patient from ED, patient ambulatory with steady gait. Patient stating on the way out, "This place should be called [facility], nobody gives a shit."
== END 2020-08-28 14:44 | disposition home or self-care (01) ==
LOC: ED 14:38
DX: F10.120 Alcohol abuse with intoxication, uncomplicated (principal); Y90.0 Blood alcohol level of less than 20 mg/100 ml
CPT/HCPCS: 99283

== ENCOUNTER 2020-10-27 02:30 | Emergency (ER) | payer MEDICAID ==
[~2020-10-27] VITALS: Ht 172.7 cm; Wt 78.0 kg
--- NOTE | 2020-10-27 03:40 | NUR ---
PT RESTING ON YAKELIN REEVES
[2020-10-27 03:54] VITALS: BP 126/75
--- NOTE | 2020-10-27 04:55 | NUR ---
PT CONTINUES TO REST ON YAKELIN REEVES
--- NOTE | 2020-10-27 06:09 | NUR ---
PT NOW AWAKE REQ WATER AND URINAL, WILL BE DC SOON
--- NOTE | 2020-10-27 07:00 | NUR ---
Report received and care assumed. Pt sleeping on bed, already given d/c instructions and asked to get shoes on for leaving prior to assumption of care per RN report. Pt without shoes on, urine in urinal and on floor, and pt curled up on L lateral on gurney. Security to be called to mobilize if pt refuses to go at this point.
--- NOTE | 2020-10-27 07:20 | NUR ---
Pt assisted with putting on his shoes and shirts, escorted by RN to discharge desk where he refused to stay for assessment and walked out of dept. Pt refused reassessment of VS as well prior to leaving ED room 17.
== END 2020-10-27 08:00 | disposition home or self-care (01) ==
LOC: ED 04:19
DX: F10.120 Alcohol abuse with intoxication, uncomplicated (principal); G31.2 Degeneration of nervous system due to alcohol; F17.200 Nicotine dependence, unspecified, uncomplicated; Z72.9 Problem related to lifestyle, unspecified; Y90.9 Presence of alcohol in blood, level not specified
CPT/HCPCS: 99283

== ENCOUNTER 2020-12-07 22:01 | Emergency (ER) | payer MEDICAID ==
[~2020-12-07] VITALS: Ht 180.3 cm; Wt 74.7 kg
[2020-12-07 22:07] VITALS: BP 133/94
--- NOTE | 2020-12-07 22:25 | NUR ---
BIB [facility]. PT C/O BILAT FLANK PAIN AND RIGHT INGUINAL HERNIA. +ETOH AND METH TODAY. PT REFUSED INTERVENTIONS BY [facility]. PT CONNECTED TO MONITORING. CALL LIGTH IN REACH. PT IS RESTLESS ON GURNEY AND NONSTOP TALKING. PT C/O PAIN TO RIGHT INGUINAL HERNIA. PT COMPLIANT WITH CARE. ERPA AT BEDSIDE.
--- NOTE | 2020-12-07 22:40 | NUR ---
PT AMBULATED TO RESTROOM WITH STEADY GAIT TO PROVIDE URINE SAMPLE. UA COLLECTED AND SENT TO LAB.
--- NOTE | 2020-12-07 22:45 | NUR ---
REPORT FROM CORINNE ASSUMED CARE OF PT AT THIS TIME
[2020-12-07 22:48] LABS: MICROSCOPIC INDICATED
[2020-12-07 23:00] LABS: BASOPHILS % (AUTO) 1 % (0-1); EOSINOPHILS % (AUTO) 2 % (1-7); LYMPHOCYTES % (AUTO) 43 % (22-44); MD NO; MEAN CORPUSCULAR HEMOGLOBIN 32.4 pg (27.5-34.5); MEAN CORPUSCULAR HGB CONC 34.3 g/dL (33.2-36.2); MEAN PLATELET VOLUME 7.2 fL (7.4-10.4); MONOCYTES % (AUTO) 11 % (2-9); NEUTROPHILS % (AUTO) 44 % (42-75); PLATELET COUNT 321 x10^3/uL (130-400); RED BLOOD COUNT 4.63 x10^6/uL (4.38-5.82); RED CELL DISTRIBUTION WIDTH 13.8 % (9.4-14.8)
[2020-12-07 23:09] LABS: ALANINE AMINOTRANSFERASE 96 U/L (12-78); ALBUMIN 3.5 g/dL (3.4-5.0); ANION GAP 10 mmol/L (5-15); CALCIUM 8.7 mg/dL (8.5-10.1); CHLORIDE 111 mmol/L (98-107); CREATININE 0.79 mg/dL (0.7-1.3)
[2020-12-07 23:12] LABS: ALKALINE PHOSPHATASE 96 U/L (45-117); BILIRUBIN,TOTAL 0.3 mg/dL (0.2-1.0); TOTAL PROTEIN 8.8 g/dL (6.4-8.2)
--- NOTE | 2020-12-07 23:29 | NUR ---
ARPITA FRIEND [phone]
[2020-12-07] MEDS ORDERED: OXYcodone/APAP 5/325MG TABLET PO ONE (23:30)
[2020-12-07] MEDS ORDERED: OXYcodone/APAP 5/325MG TABLET ONE (23:39)
[2020-12-08] MEDS ORDERED: CEFTRIAXONE 1,000 MG IM ONE (00:30)
[2020-12-08] MEDS ORDERED: AZITHROMYCIN 500 MG TABLET PO ONE (00:30)
[2020-12-08] MEDS ORDERED: CEFTRIAXONE 1,000 MG ONE (00:34)
[2020-12-08] MEDS ORDERED: AZITHROMYCIN 500 MG TABLET ONE (00:34)
== END 2020-12-08 00:48 | disposition home or self-care (01) ==
LOC: ED 12-08 00:42
DX: K40.20 Bilateral inguinal hernia, without obstruction or gangrene, not specified as recurrent (principal); A74.89 Other chlamydial diseases; F15.10 Other stimulant abuse, uncomplicated; R51.9 Headache, unspecified; Z72.9 Problem related to lifestyle, unspecified; G40.909 Epilepsy, unspecified, not intractable, without status epilepticus
CPT/HCPCS: 36415; 70450; 74176; 80053; 81001; 85025; 87086; 99285

== ENCOUNTER 2021-01-20 20:53 | Emergency (ER) | payer MEDICAID ==
[~2021-01-20] VITALS: Ht 180.3 cm; Wt 89.3 kg
--- NOTE | 2021-01-20 21:12 | NUR ---
PT BIB EMS FOR UMBILLICAL HERNIA PAIN. PT ADMITS TO ETOH AND METH USE WELL. PT IS HIGHLY INTOXICATED AT THIS TIME, STRONG ETOH ODOR. PT HAVING DIFFICULTY STAYING AWAKE FOR EXAM AND UNABLE TO ANSWER MOST QUESTIONS BUT POINTED TO WOUND ON RIGHT LEG
[2021-01-20 22:32] LABS: MICROSCOPIC INDICATED
[2021-01-21] VITALS: BP 121/77
--- NOTE | 2021-01-21 01:42 | NUR ---
PT ESCORTED OUT BY SECURITY.
== END 2021-01-21 01:44 | disposition home or self-care (01) ==
LOC: ED 21:10
DX: K40.91 Unilateral inguinal hernia, without obstruction or gangrene, recurrent (principal); M54.5 Low back pain; F15.10 Other stimulant abuse, uncomplicated; F17.210 Nicotine dependence, cigarettes, uncomplicated; R00.0 Tachycardia, unspecified; Y90.0 Blood alcohol level of less than 20 mg/100 ml
CPT/HCPCS: 81001; 87491; 87591; 99283; 99406

== ENCOUNTER 2021-02-05 23:50 | Observation (INO) | payer MEDICAID ==
[~2021-02-05] VITALS: Ht 180.3 cm; Wt 80.0 kg
--- NOTE | 2021-02-06 00:02 | NUR ---
MANUELITO AFTER BEING FOUND BY FRIENDS WHO THOUGHT PT WAS IN PAIN. PER EMS PT WASN'T TALKING MUCH EN ROUTE BUT DID SAY HE HAS A HERNIA AND POINTING TO HIS LLQ WHERE THERE IS SOME LIGHT BLACK BRUISING. BLOOD SUGAR 112 WITH EMS. PT DENIES USING INSULIN AND BLOOD THINNERS.
[2021-02-06 00:11] LABS: BASOPHILS % (AUTO) 1 % (0-1); EOSINOPHILS % (AUTO) 3 % (1-7); LYMPHOCYTES % (AUTO) 42 % (22-44); MEAN CORPUSCULAR HEMOGLOBIN 33.4 pg (27.5-34.5); MEAN CORPUSCULAR HGB CONC 34.1 g/dL (33.2-36.2); MEAN PLATELET VOLUME 7.5 fL (7.4-10.4); MONOCYTES % (AUTO) 12 % (2-9); NEUTROPHILS % (AUTO) 41 % (42-75); PLATELET COUNT 272 x10^3/uL (130-400); RED CELL DISTRIBUTION WIDTH 14.9 % (9.4-14.8)
[2021-02-06 00:13] LABS: MD NO
[2021-02-06 00:25] LABS: ALANINE AMINOTRANSFERASE 260 U/L (12-78); ALBUMIN 3.5 g/dL (3.4-5.0); ANION GAP 11 mmol/L (5-15); CALCIUM 8.1 mg/dL (8.5-10.1); CHLORIDE 108 mmol/L (98-107); CREATININE 0.59 mg/dL (0.7-1.3)
[2021-02-06 00:27] LABS: ALKALINE PHOSPHATASE 101 U/L (45-117); BILIRUBIN,TOTAL 0.4 mg/dL (0.2-1.0); TOTAL PROTEIN 8.1 g/dL (6.4-8.2)
--- NOTE | 2021-02-06 00:57 | NUR ---
Task rn: ua collected with reassessment patient now deep asleep and therfore pox mid 80's on room air-placed on 2l nc-erp made aware
[2021-02-06 01:07] LABS: MICROSCOPIC NOT IND
--- NOTE | 2021-02-06 02:14 | NUR ---
PT SLEEPING, RESP EVEN AND UNLABORED
--- NOTE | 2021-02-06 02:51 | NUR ---
REPORT GIVEN TO AVELINO REY
--- NOTE | 2021-02-06 02:52 | NUR ---
Report received from Melba REY.
--- NOTE | 2021-02-06 03:15 | NUR ---
PT RESTING IN BED WITH BILATERAL CHEST RISE AND FALL WITH GOOD INSPIRATION AND EXPIRATION. HOOKED UP TO ALL MONITORING DEVICES, HEART MONITOR, O2 SATURATION AND O2.
[2021-02-06] MEDS ORDERED: SODIUM CHLORIDE 0.9% 1,000ML IVBOLUS ONE (04:00)
--- NOTE | 2021-02-06 05:10 | NUR ---
PT RESTING IN BED BOTH RAILS UP. BILATERAL CHEST RISE AND FALL WITH GOOD INSPIRATION AND EXPIRATION. VSS. CALL REMOTE WITHIN REACH.
--- NOTE | 2021-02-06 06:05 | NUR ---
PT RESTING IN GURNEY BILATERAL CHEST RISE AND FAILL WITH EQUAL INSPIRATION EXPIRATION. VSS. CALL REMOTE WITHIN REACH. RAILS UP X2.
--- NOTE | 2021-02-06 06:46 | NUR ---
PT RESTING IN BED, BILATERAL CHEST RISE AND FALL. CALL REMOTE WITHIN REACH. BOTH RAILS UP X2.
--- NOTE | 2021-02-06 06:53 | NUR ---
REPORT FROM AVELINO. MARIA T SLEEPING
--- NOTE | 2021-02-06 06:54 | NUR ---
REPORT GIVEN TO ERWIN MASSEY
--- NOTE | 2021-02-06 08:55 | NUR ---
PT REPORT FROM KRISSY REYES. PT ASLEEP, RESP EVEN & UNLABORED, VS MONITORING IN PROGRESS.
--- NOTE | 2021-02-06 09:15 | NUR ---
DRY IV TUBING & BAG DISCONNECTED FROM IV PORT. CARDIAC MONITORING IN PROGRESS: SINUS TACH.PT SPEAKING IN SLIGHTLY SLURRED SPEECH. ABLE TO MOVE ALL EXTREMETIES VOLUNTARILY.
[2021-02-06 09:20] VITALS: BP 105/81
--- NOTE | 2021-02-06 09:35 | NUR ---
PT INSISTANT UPON LEAVING. ABLE TO AMBULATE W/ STEADY GAIT. IV DC'D. WRITTEN DC INSTRUCTIONS DISCUSSED W/ PT; UNDERSTANDING VERBALIZED. OSCAR CARDOZO AND JONNY DELEON PROVIDED. ACCOMPANIED PT TO DC DESK.
== END 2021-02-06 10:13 | disposition home or self-care (01) ==
LOC: ED 02-06 00:20 → INTOOBSV 02-06 05:41 → EDIP 02-06 05:41 → UNDODISIN 02-06 10:13
PROVIDERS: ADMIT Student in an Organized Health Care Education/Training Program; ATTEND Student in an Organized Health Care Education/Training Program
DX: F10.221 Alcohol dependence with intoxication delirium (principal); R79.89 Other specified abnormal findings of blood chemistry; G31.2 Degeneration of nervous system due to alcohol; G40.909 Epilepsy, unspecified, not intractable, without status epilepticus; F15.90 Other stimulant use, unspecified, uncomplicated; F20.9 Schizophrenia, unspecified; Y90.8 Blood alcohol level of 240 mg/100 ml or more; Z63.8 Other specified problems related to primary support group; Z79.899 Other long term (current) drug therapy
CPT/HCPCS: 36415; 80053; 80320; 81003; 83690; 85025; 99284; G0378; J7030; 93005; G0480

== ENCOUNTER 2021-02-07 20:54 | Emergency (ER) | payer SELFPAY ==
[~2021-02-07] VITALS: Ht 180.3 cm; Wt 85.0 kg
--- NOTE | 2021-02-07 21:02 | NUR ---
PT BIB EMS FROM [facility] WHERE HE WAS FOUND PASSED OUT ON THE SIDE WALK. ETOH ODOR NOTED. LOCALIZES TO PAIN. GCS 9. FINGER STICK 166. Patient is resting comfortably in bed. Bed in lowest, rails engaged, call light on lap. Vital Signs within normal limits. WCTM.
[2021-02-07] MEDS ORDERED: LIDOCAINE-MPF 2% ,5ML ONE (21:07)
--- NOTE | 2021-02-07 21:59 | NUR ---
PT SLEEPING ON GURNEY, CONNECTED TO MONITORING, VSS, DOLORESN.
--- NOTE | 2021-02-07 23:42 | NUR ---
PT AMBULATORY OUT OF ROOM REQUESTING ORANGE.
[2021-02-07 23:47] VITALS: BP 102/75
--- NOTE | 2021-02-07 23:48 | NUR ---
PT AMBULATORY W/ A STEADY GAIT TO DC DESK. CONVERSING IN FULL SENTENCES, LEANDRO PEDERSEN. PROVIDED OJ TO GO PER PT REQUEST.
== END 2021-02-08 23:51 ==
LOC: ED 23:45 → MERGE 02-08 00:20 → ED 02-08 00:23
DX: F10.229 Alcohol dependence with intoxication, unspecified (principal); Y90.0 Blood alcohol level of less than 20 mg/100 ml
CPT/HCPCS: 99283

== ENCOUNTER 2021-03-09 19:08 | Emergency (ER) | payer MEDICAID ==
[~2021-03-09] VITALS: Ht 180.3 cm; Wt 85.0 kg
--- NOTE | 2021-03-09 19:39 | NUR ---
RISK CONTROL PRODUCT LIABILITY DIRECTOR: PT. TO ROOM FROM WALL WITH RAVINDER AT THIS TIME.
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
[2021-03-09 20:31] LABS: MEAN CORPUSCULAR HGB CONC 33.4 g/dL (33.2-36.2)
[2021-03-09 20:35] LABS: BASOPHILS % (AUTO) 1 % (0-1); EOSINOPHILS % (AUTO) 2 % (1-7); LYMPHOCYTES % (AUTO) 37 % (22-44); MEAN CORPUSCULAR HEMOGLOBIN 33.3 pg (27.5-34.5); MONOCYTES % (AUTO) 8 % (2-9); NEUTROPHILS % (AUTO) 51 % (42-75); PLATELET COUNT 206 x10^3/uL (130-400); RED BLOOD COUNT 4.57 x10^6/uL (4.38-5.82); RED CELL DISTRIBUTION WIDTH 13.6 % (9.4-14.8)
[2021-03-09 20:38] LABS: ALANINE AMINOTRANSFERASE 141 U/L (12-78); ALBUMIN 3.2 g/dL (3.4-5.0); ANION GAP 9 mmol/L (5-15); CALCIUM 8.2 mg/dL (8.5-10.1); CHLORIDE 109 mmol/L (98-107); CREATININE 0.59 mg/dL (0.7-1.3)
[2021-03-09 20:43] LABS: ALKALINE PHOSPHATASE 105 U/L (45-117); BILIRUBIN,TOTAL 0.3 mg/dL (0.2-1.0); TOTAL PROTEIN 7.8 g/dL (6.4-8.2)
[2021-03-09] MEDS ORDERED: OMNIPAQUE 350 MG/ML, 100ML BOTTLE ONE (21:00)
--- NOTE | 2021-03-09 21:22 | NUR ---
PT TAKEN AND BROUGHT BACK FROM CT, PLACED ON CONTINUOUS MONITORING, RESTING ON GURNEY, DENIES NEEDS AT THIS TIME.
--- NOTE | 2021-03-09 22:24 | NUR ---
PT RESTING ON GURNEY, DENIES NEEDS AT THIS TIME.
--- NOTE | 2021-03-09 23:00 | NUR ---
PT RESTING ON GURSANDY, DENIES NEEDS AT THIS TIME
--- NOTE | 2021-03-10 | NUR ---
PT RESTING ON GURSANDY, DENIES NEEDS AT THIS TIME
--- NOTE | 2021-03-10 01:00 | NUR ---
PT RESTING ON GURSANDY, DENIES NEEDS AT THIS TIME
--- NOTE | 2021-03-10 02:07 | NUR ---
pt given orange juice. pt resting on gurney, denies needs at this time
--- NOTE | 2021-03-10 03:00 | NUR ---
PT RESTING ON GURNEY, DENIES NEEDS AT THIS TIME.
--- NOTE | 2021-03-10 04:00 | NUR ---
PT RESTING ON GURNEY, DENIES NEEDS AT THIS TIME.
[2021-03-10 04:44] VITALS: BP 134/90
--- NOTE | 2021-03-10 04:44 | NUR ---
Patient given discharge instructions and they have confirmed that they understand the instructions. Patient ambulatory with steady gait.
== END 2021-03-10 04:47 | disposition home or self-care (01) ==
LOC: ED 03-10 03:06
DX: F10.220 Alcohol dependence with intoxication, uncomplicated (principal); R94.5 Abnormal results of liver function studies; R51.9 Headache, unspecified; M54.2 Cervicalgia; R10.9 Unspecified abdominal pain; Z59.0 Homelessness; Y90.0 Blood alcohol level of less than 20 mg/100 ml; Y04.8XXA Assault by other bodily force, initial encounter; Y93.89 Activity, other specified; Y92.89 Other specified places as the place of occurrence of the external cause; Y99.8 Other external cause status
CPT/HCPCS: 36415; 70450; 72125; 74177; 80053; 80320; 85025; 93005; 99285; Q9967; G0480

== ENCOUNTER 2021-03-12 14:52 | Emergency (ER) | payer MEDICAID ==
[~2021-03-12] VITALS: Ht 180.3 cm; Wt 81.3 kg
--- NOTE | 2021-03-12 15:20 | NUR ---
PT TO ROOM FROM TRIAGE, PT C/O HERNIA PAIN & NEEDS TO BE MEDICALLY CLEARED FOR DETOX CENTER. PT STATES HE DRANK EARLIER TODAY. LIZ WHITNEYASSADOR'S AT BS. PT CONNECTED TO MONITOR. CALL LIGHT WITHIN REACH
--- NOTE | 2021-03-12 15:28 | NUR ---
PT TO XRAY
--- NOTE | 2021-03-12 15:40 | NUR ---
PT BACK FROM XRAY
[2021-03-12 16:05] LABS: BASOPHILS % (AUTO) 1 % (0-1); EOSINOPHILS % (AUTO) 1 % (1-7); LYMPHOCYTES % (AUTO) 34 % (22-44); MEAN CORPUSCULAR HEMOGLOBIN 33.5 pg (27.5-34.5); MEAN CORPUSCULAR HGB CONC 34.3 g/dL (33.2-36.2); MEAN PLATELET VOLUME 7.6 fL (7.4-10.4); MONOCYTES % (AUTO) 10 % (2-9); NEUTROPHILS % (AUTO) 53 % (42-75); PLATELET COUNT 220 x10^3/uL (130-400); RED BLOOD COUNT 4.38 x10^6/uL (4.38-5.82); RED CELL DISTRIBUTION WIDTH 13.4 % (9.4-14.8)
[2021-03-12 16:14] LABS: ALANINE AMINOTRANSFERASE 104 U/L (12-78); ALBUMIN 3.2 g/dL (3.4-5.0); ANION GAP 9 mmol/L (5-15); CALCIUM 8.2 mg/dL (8.5-10.1); CHLORIDE 108 mmol/L (98-107); CREATININE 0.64 mg/dL (0.7-1.3)
[2021-03-12 16:16] LABS: ALKALINE PHOSPHATASE 104 U/L (45-117); BILIRUBIN,TOTAL 0.6 mg/dL (0.2-1.0); TOTAL PROTEIN 7.8 g/dL (6.4-8.2)
--- NOTE | 2021-03-12 16:20 | NUR ---
PT TO BR WITH HELP OF LIZ SAMPSON
[2021-03-12 17:09] VITALS: BP 137/93
--- NOTE | 2021-03-12 17:19 | NUR ---
Patient given discharge instructions and they have confirmed that they understand the instructions.
== END 2021-03-12 17:21 | disposition home or self-care (01) ==
LOC: ED 15:04
DX: K40.90 Unilateral inguinal hernia, without obstruction or gangrene, not specified as recurrent (principal)
CPT/HCPCS: 36415; 74021; 80053; 83690; 85025; 99284

== ENCOUNTER 2021-05-06 17:00 | Emergency (ER) | payer MEDICAID ==
[~2021-05-06] VITALS: Ht 175.3 cm; Wt 81.6 kg
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
--- NOTE | 2021-05-06 18:32 | NUR ---
PT SLEEPING, RESP EVEN AND UNLABORED.
--- NOTE | 2021-05-06 18:46 | NUR ---
REPORT TO ROSIO REY, PLAN OF CARE DISCUSSED
--- NOTE | 2021-05-06 19:49 | NUR ---
ATTEMPTED TO ROAD TEST PT. PT VERY DROSY STILL, UNABLE TO FULLY STAY AWAKE, PT ON MONITORS, VSS. WILL CONITNUE TO MONITOR
--- NOTE | 2021-05-06 21:03 | NUR ---
attempted to rouse pt for road test. pt groaning and not able to fully wake up. pt on monitors, vss. will continue to monitor
[2021-05-06 21:33] VITALS: BP 117/64
--- NOTE | 2021-05-06 22:28 | NUR ---
pt steady ambulating, a/o x 4, laughing and joking. erp aware. pt d/c'd. pt did not have shoes upon arrival, denied new socks. pt given bus pass and snacks as well. pt states [facility] and will go there
== END 2021-05-06 23:35 | disposition home or self-care (01) ==
LOC: ED 17:05 → INTOOBSV 17:12 → UNDOADMOB 17:12 → EDIP 17:12 → ED 17:17
DX: F10.121 Alcohol abuse with intoxication delirium (principal); G31.2 Degeneration of nervous system due to alcohol; Z72.9 Problem related to lifestyle, unspecified; G40.909 Epilepsy, unspecified, not intractable, without status epilepticus; Y90.0 Blood alcohol level of less than 20 mg/100 ml
CPT/HCPCS: 36415; 80320; 99283; G0480

== ENCOUNTER 2021-05-24 02:17 | Emergency (ER) | payer MEDICAID ==
[~2021-05-24] VITALS: Ht 180.3 cm; Wt 84.1 kg
[2021-05-24 03:51] VITALS: BP 124/78
--- NOTE | 2021-05-24 07:00 | NUR ---
REPORT RECIEVED, CARE ASSUMED ON PT AT THIS TIME, PT RESTING ON GURNEY, ORDERS TO ROAD TEST, WILL ATTEMPT AT LATER TIME.
--- NOTE | 2021-05-24 07:31 | NUR ---
ATTEMPTED TO AMBULATE. PT STILL UNABLE TO STAND WITHOUT ASSISTANCE OR GIVE ADDRESS FOR SAFE DC.
--- NOTE | 2021-05-24 10:25 | NUR ---
PT OFFERED ORANGE JUICE, ABLE TO DEMONSTRATE STEADY GAIT. WILL PROCEED WITH DC
== END 2021-05-24 10:27 | disposition home or self-care (01) ==
LOC: ED 02:20
DX: F10.220 Alcohol dependence with intoxication, uncomplicated (principal); Y90.0 Blood alcohol level of less than 20 mg/100 ml
CPT/HCPCS: 99283

== ENCOUNTER 2021-06-06 20:40 | Emergency (ER) | payer MEDICAID ==
[~2021-06-06] VITALS: Ht 180.3 cm; Wt 89.0 kg
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
--- NOTE | 2021-06-06 22:23 | NUR ---
NO CHANGE IN PT STATUS. WILL CONTINUE TO MONITOR.
--- NOTE | 2021-06-07 00:45 | NUR ---
TASK: PT ABLE TO AMBULATE WITH STEADY GAIT. ERP AWARE PT TO BE D/C FROM DEPARTMENT
--- NOTE | 2021-06-07 00:52 | NUR ---
Patient given verbal discharge instructions, not willing to wait for d/c paperwork. Patient ambulatory with steady gait. NAD, all questions answered appropriately, denies additional needs at this time. No personal belongings left in room after discharge.
[2021-06-07 00:53] VITALS: BP 110/69
== END 2021-06-07 00:55 | disposition home or self-care (01) ==
LOC: ED 20:57
DX: F10.220 Alcohol dependence with intoxication, uncomplicated (principal); G40.909 Epilepsy, unspecified, not intractable, without status epilepticus; Y90.0 Blood alcohol level of less than 20 mg/100 ml
CPT/HCPCS: 99283